=== PATIENT | female | born 1995 | race Asian ===

== ENCOUNTER 2019-05-07 20:30 | Emergency (ER) | payer BC ==
[~2019-05-07] VITALS: Ht 170.2 cm; Wt 81.2 kg
[2019-05-07 20:35] VITALS: Ht 170.2 cm; Wt 81.2 kg
[2019-05-07 22:49] VITALS: BP 134/82
== END 2019-05-07 20:35 | disposition home or self-care (01) ==
LOC: ED 20:30
DX: L03.116 Cellulitis of left lower limb (principal)
CPT/HCPCS: 90715